=== PATIENT | male | born 1955 | race Caucasian/White ===

== ENCOUNTER 2019-02-18 08:57 | Emergency (ER) | payer MEDICAID ==
[~2019-02-18] VITALS: Ht 172.7 cm; Wt 107.5 kg
[2019-02-18 09:00] VITALS: BP_SYST 165
[2019-02-18 10:14] VITALS: BP_SYST 165
== END 2019-02-18 10:14 | disposition home or self-care (01) ==
LOC: SED 08:57
DX: S86.812A Strain of other muscle(s) and tendon(s) at lower leg level, left leg, initial encounter (principal); Z90.89 Acquired absence of other organs; X58.XXXA Exposure to other specified factors, initial encounter; Y93.89 Activity, other specified; Y92.89 Other specified places as the place of occurrence of the external cause; Y99.8 Other external cause status
CPT/HCPCS: 93971; 99284

== ENCOUNTER 2019-03-04 09:20 | Inpatient (IN) | payer MEDICAID ==
[2019-03-03 19:20] VITALS: BP_SYST 134
[~2019-03-04] VITALS: Ht 172.7 cm; Wt 106.6 kg
[2019-03-04 09:36] VITALS: BP_SYST 119
--- NOTE | 2019-03-04 09:40 | NUR ---
Patient to ER bed H1 to gown for evaluation. Side rails up. Assumed care.
--- NOTE | 2019-03-04 09:45 | NUR ---
Patient arrived via POV, AAOx4, and ambulatory with steady gait. Patient states he was seen for calf pain earlier this month and placed on Naprosyn. Onset of GI bleeding, blood in stool yesterday. He had 5 episode yesterday which he did not collect. Then he states he went to bed last night, and hoped it would be better today. Patient states he woke up and had another episode of bloody stool this AM and decided to come in. Patient brought in sample. Patient states he drove himself to the hospital since he wasnt feeling any pain or discomfort and was asymptomatic. While walking into the hospital he states he was feeling a bit winded and having SOB. Patient has tachycardia upon triage. Will continue to follow up and monitor.
--- NOTE | 2019-03-04 09:47 | NUR ---
ER at bedside examining patient.
[2019-03-04] MEDS ORDERED: NACL 0.9% 1,000 ML IV ONE (10:00)
[2019-03-04] MEDS ORDERED: PANTOPRAZOLE SODIUM 40 MG/VIAL (PROTONIX) IVP ONE (10:00)
--- NOTE | 2019-03-04 10:25 | NUR ---
Patient resting comfortably. Needs are met at this time. Will continue to follow up and monitor.
[2019-03-04 10:28] LABS: BASOPHILS % (AUTO) 0.3 % (0.0-2.0); EOSINOPHILS # (AUTO) 0.2 K/uL (0.0-0.4); EOSINOPHILS % (AUTO) 1.7 % (0.0-4.0); HEMATOCRIT 35.7 % (36-54); HEMOGLOBIN 11.8 g/dL (14.0-18.0); LYMPHOCYTES # (AUTO) 1.5 K/uL (1.0-5.5); LYMPHOCYTES % (AUTO) 17.4 % (20.5-51.5); MEAN CORPUSCULAR HEMOGLOBIN 30 pg (27-31); MEAN CORPUSCULAR HGB CONC 33 % (32-36); MEAN CORPUSCULAR VOLUME 90 fL (79.0-98.0); MONOCYTES # (AUTO) 0.5 K/uL (0.0-1.0); MONOCYTES % (AUTO) 5.7 % (1.7-9.3); NEUTROPHILS # (AUTO) 6.6 K/uL (1.8-7.7); NEUTROPHILS % (AUTO) 74.9 % (40.0-70.0); PLATELET COUNT (AUTO) 181 K/uL (130-430); RED BLOOD CELL COUNT(AUTO) 3.98 MIL/uL (4.2-6.2); RED CELL DISTRIBUTION WIDTH 14.4 % (9.0-15.0); WHITE BLOOD COUNT (AUTO) 8.8 K/uL (4.8-10.8)
[2019-03-04 10:32] LABS: CALCIUM 8.5 mg/dL (8.4-11.0); CREATININE 0.88 mg/dL (0.55-1.30); POTASSIUM 4.8 mmol/L (3.5-5.1)
[2019-03-04 10:38] LABS: ALBUMIN 3.5 g/dL (3.4-4.8); TOTAL BILIRUBIN 0.5 mg/dL (0.0-1.0)
--- NOTE | 2019-03-04 11:45 | NUR ---
SPOKE WITH ELENI NIGHT BAKER WITH PATIENTS INSURANCE.
--- NOTE | 2019-03-04 11:45 | NUR ---
Spoke with patients human services case manager, Shala. Okay to admit to [facility] as we are contracted with [facility]. Okay to admit to reproduction production manager physician which is Dr. Strauss. Dr. Strauss is paged.
--- NOTE | 2019-03-04 12:07 | NUR ---
Per MST, will call back with room number
--- NOTE | 2019-03-04 12:27 | NUR ---
CONSULTATION PAGED/CALLED Reason for Consultation: LOWER GI BLEED Person Who was Notified: ROSA Consulting Physician: DR. CRUZ Retail Field Merchandiser Specialty: TITLE I PARAPROFESSIONAL Ordering Physician: DR. STEPHEN
--- NOTE | 2019-03-04 12:32 | NUR ---
Report called to GRZEGORZ Mueller.
--- NOTE | 2019-03-04 12:35 | NUR ---
Patient will be admitted to care of Dr. Strauss. Admitted to Med Surg unit. Will go to room 117B. Belongings list completed. Complete and up to date summary report printed. SBAR report to be given at bedside with opportunity for questions.
--- NOTE | 2019-03-04 12:40 | NUR ---
ADMIT NOTE Received pt from ER to the floor with a diagnosis of GI Bleeding. Admission process initiated. patient oriented to pain management, safety and call light-teach back done.
--- NOTE | 2019-03-04 13:00 | NUR ---
ADMISSION: RECEIVED PT FROM ER VIA CRYSTAL IN STABLE CONDITION, DX:RISK FOR FLUID VOLUME DEFICIT, R/T GI BLEED, VSS, AFEBRILE, NO S/S OF DISTRESS, BREATH SOUNDS ARE CLEAR, BREATHING UNLABORED, NO C/O PAIN OR DISCOMFORT, IV SITE INTACT, PATENT, NO REDNESS OR SWELLING, ORIENTED TO UNIT, CALL LIGHT PLACED WITHIN REACH, WILL CONT' TO MONITOR AND ASSESS.
[2019-03-04] MEDS: KCL 20 mEq in D5/0.45NS 1000mL 1,000 ML IV SCH ×2 (14:38→21:26)
--- NOTE | 2019-03-04 15:00 | NUR ---
NURSES NOTES: PT HAS NO SIGNIFICANT CHANGES NOTED AT THIS TIME, ASSESSMENT MADE WHILE SITTING UP IN BED TALKING ON THE TELEPHONE, NEEDS MET, CALL LIGHT WITHIN REACH, WILL CONT' WITH POC.
[2019-03-04 15:12] VITALS: BP_SYST 134
--- NOTE | 2019-03-04 18:00 | NUR ---
END OF SHIFT: PT HAS NO SIGNIFICANT CHANGES, NO C/O ANYTHING AT THIS TIME, NEEDS MET, CALL LIGHT WITHIN REACH, WILL CONT' TO MONITOR, WILL ENDORSE TO INSTRUMENT PROCESSING TECH NURSE.
[2019-03-04 19:30] VITALS: BP_SYST 134
--- NOTE | 2019-03-04 19:30 | NUR ---
INITIAL NOTES PATIENT IS LAYING IN BED AND STABLE. NO S/S OF RESPIRATORY DISTRESS NOTED. CALL LIGHT IN REACH. BED IS LOCKED AND AT THE LOWEST POSITION. PATIENT REFUSED BED ALARM AT THIS TIME. WILL CONTINUE TO EDUCATE. PLAN OF CARE IS DISCUSSED WITH PATIENT AT THIS TIME. PATIENT VERBALIZES NO PAIN. FALL, SAFETY, ASPIRATION, AND RESPIRATORY PRECAUTIONS WILL BE IN PLACE THROUGHOUT THE SHIFT. PATIENT SUCCESSFULLY DEMONSTRATES USAGE OF CALL LIGHT AT THIS TIME.
[2019-03-04] MEDS: PANTOPRAZOLE SODIUM 40 MG/VIAL (PROTONIX) IVP SCH (21:26)
--- NOTE | 2019-03-04 21:30 | NUR ---
ROUNDING PATIENT IS WATCHING TV IN BED. PATIENT IS STABLE. NO S/S OF RESPIRATORY DISTRESS NOTED. CALL LIGHT IN REACH. BED IS LOCKED AND AT THE LOWEST POSITION. WILL CONTINUE TO MONITOR.
[2019-03-05] VITALS: BP_SYST 130
--- NOTE | 2019-03-05 01:30 | NUR ---
ROUNDING PATIENT IS SLEEPING. PATIENT IS STABLE. NO S/S OF RESPIRATORY DISTRESS NOTED. CALL LIGHT IN REACH. BED IS LOCKED AND AT THE LOWEST POSITION. WILL CONTINUE TO MONITOR.
--- NOTE | 2019-03-05 05:30 | NUR ---
ROUNDING PATIENT IS SLEEPING IN BED AND STABLE. NO S/S OF RESPIRATORY DISTRESS NOTED. CALL LIGHT IN REACH. BED IS LOCKED, ALARMED, AND AT THE LOWEST POSITION. WILL CONTINUE TO MONITOR.
--- NOTE | 2019-03-05 06:16 | NUR ---
CLOSING NOTES PATIENT IS LAYING IN BED AND STABLE. NO S/S OF RESPIRATORY DISTRESS NOTED. CALL LIGHT IN REACH. BED IS LOCKED, AND AT THE LOWEST POSITION. FALL, SAFETY, ASPIRATION, AND RESPIRATORY PRECAUTIONS HAS BEEN IN PLACE THROUGHOUT THE SHIFT. ALL NEEDS MET. WILL CONTINUE TO MONITOR UNTIL REPORT IS GIVEN TO AM NURSE BY BEDSIDE.
--- NOTE | 2019-03-05 07:37 | NUR ---
OPENING NOTE Patient resting in the bed. No acute distress. AAO x 4. Skin warm and dry to touch. Per patient IV accidental out minutes ago, no bleeding, IV tip intact. Discussed the safety issue, use call light when needs help, and plan of care, verbally understanding. Safety measure maintained. Bed locked in low position, side rails up. Refused bed alarm, risk and benefit explained, verbally understanding. Call light within reached. Will continue to monitor.
[2019-03-05 08:00] VITALS: BP_SYST 130
[2019-03-05 08:03] LABS: CREATININE 0.83 mg/dL (0.55-1.30); POTASSIUM 4.1 mmol/L (3.5-5.1)
[2019-03-05 08:04] LABS: BASOPHILS % (AUTO) 0.6 % (0.0-2.0); EOSINOPHILS # (AUTO) 0.2 K/uL (0.0-0.4); HEMATOCRIT 29.8 % (36-54); HEMOGLOBIN 9.8 g/dL (14.0-18.0); LYMPHOCYTES # (AUTO) 1.6 K/uL (1.0-5.5); LYMPHOCYTES % (AUTO) 27.1 % (20.5-51.5); MEAN CORPUSCULAR HEMOGLOBIN 30 pg (27-31); MEAN CORPUSCULAR HGB CONC 33 % (32-36); MEAN CORPUSCULAR VOLUME 91 fL (79.0-98.0); MONOCYTES # (AUTO) 0.5 K/uL (0.0-1.0); MONOCYTES % (AUTO) 7.8 % (1.7-9.3); NEUTROPHILS # (AUTO) 3.6 K/uL (1.8-7.7); NEUTROPHILS % (AUTO) 60.5 % (40.0-70.0); PLATELET COUNT (AUTO) 164 K/uL (130-430); RED BLOOD CELL COUNT(AUTO) 3.29 MIL/uL (4.2-6.2); RED CELL DISTRIBUTION WIDTH 14.3 % (9.0-15.0); WHITE BLOOD COUNT (AUTO) 5.9 K/uL (4.8-10.8)
--- NOTE | 2019-03-05 08:10 | NUR ---
IV RE-INSERTION: Restarted on LFA, gauge 22. Successful after 2 attempts. Resumed current IVF of KCl 20mEq in D5 1/2NS and regulated @ 100 per hour. Will observe for any signs of infiltration.
[2019-03-05] MEDS: PANTOPRAZOLE SODIUM 40 MG/VIAL (PROTONIX) IVP SCH ×2 (08:33→21:17)
[2019-03-05] MEDS: KCL 20 mEq in D5/0.45NS 1000mL 1,000 ML IV SCH ×2 (08:33→20:31)
--- NOTE | 2019-03-05 08:58 | NUR ---
SEEN AND EXAMINED BY PILY KIRK. ANSWERED AND EXPLAINED THE QUESTION THE PATIENT HAS.
[2019-03-05 12:00] VITALS: BP_SYST 120
--- NOTE | 2019-03-05 12:10 | NUR ---
LUNCH Patient sitting in the upright position and eating lunch. Safety measure maintained. Call light within reached. Bed locked in low position, side rails up. Continue to monitor.
--- NOTE | 2019-03-05 14:35 | NUR ---
WATCHING Patient resting in the bed and watching TV. No acute distress. IV intact, IVF infusing well. Safety measure maintained. Call light within reached. Will continue to monitor.
[2019-03-05 16:00] VITALS: BP_SYST 135
--- NOTE | 2019-03-05 16:10 | NUR ---
ROUND Patient resting in the bed and watching TV. No acute distress. IV intact, IVF infusing well. Safety measure maintained. Call light within reached. Will continue to monitor.
[2019-03-05 16:28] LABS: BASOPHILS % (AUTO) 0.4 % (0.0-2.0); EOSINOPHILS # (AUTO) 0.2 K/uL (0.0-0.4); EOSINOPHILS % (AUTO) 2.7 % (0.0-4.0); HEMATOCRIT 27.9 % (36-54); HEMOGLOBIN 9.1 g/dL (14.0-18.0); MEAN CORPUSCULAR HEMOGLOBIN 30 pg (27-31); MEAN CORPUSCULAR HGB CONC 33 % (32-36); MEAN CORPUSCULAR VOLUME 91 fL (79.0-98.0); MONOCYTES # (AUTO) 0.6 K/uL (0.0-1.0); MONOCYTES % (AUTO) 8.7 % (1.7-9.3); NEUTROPHILS # (AUTO) 4.2 K/uL (1.8-7.7); NEUTROPHILS % (AUTO) 60.2 % (40.0-70.0); PLATELET COUNT (AUTO) 162 K/uL (130-430); RED BLOOD CELL COUNT(AUTO) 3.08 MIL/uL (4.2-6.2); RED CELL DISTRIBUTION WIDTH 14.7 % (9.0-15.0)
[2019-03-05] MEDS ORDERED: BISACODYL 5 MG TABLET.DR (DULCOLAX) PO ONE (17:00)
--- NOTE | 2019-03-05 17:20 | NUR ---
COLONOSCOPY CONSENT SIGNED Per patient, Dr. Reed explained to him regarding the colonoscopy procedure and he understanding. Colonoscopy consent signed.
[2019-03-05] MEDS ORDERED: GOLYTELY / COLYTE SOLUTION 4 LITERS PO ONE (18:00)
--- NOTE | 2019-03-05 18:45 | NUR ---
CLOSING NOTE Patient resting in the bed. No acute distress. Denied of pain. Skin warm and dry to touch. IV intact to LFA, no redness, no swelling, no drainage. On KCl 20mEq in D5 1/2NS at 100ml/hr, infusing well. All needs met. Safety measure maintained. Bed locked in low position, side rails up. Refused bed alarm, risk and benefit explained, verbally understanding. Call light within reached. Will endorse to night nurse.
--- NOTE | 2019-03-05 19:45 | NUR ---
A/A/O X4.IVF D5 1/2 NS + 20 MEQ KCL/L @ 100 ML/HR INFUSING WELL.DENIES ANY DISCOMFORT @ THIS TIME.AFEBRILE. BP 146/78. INSTRUCTED TO USE CALL LIGHT NEEDED;WITHIN REACH.
--- NOTE | 2019-03-05 19:45 | NUR ---
A/A/O X4. RESTING ON RECLINER CHAIR.IVF 1/2 NS @40 ML/HR INFUSING WELL.DENIES ANY DISCOMFORT NOR SOB @ THIS TIME. NOTED LEFT ARM WITH BRUISING.BILATERAL EXTREMITIES WITH REDNESS & SWOLLEN. INSTRUCTED TO USE CALL LIGHT NEEDED;WITHIN REACH. AFEBRILE. BP 170/65. WILL CON'T TO MONITOR BP.
[2019-03-05 20:00] VITALS: BP_SYST 146
--- NOTE | 2019-03-05 22:00 | NUR ---
PT IS STILL TAKING HIS GOLYTELY,EXPLAINED TO FINISH BEFORE MN & VERBALIZED UNDERSTANDING.
--- NOTE | 2019-03-06 | NUR ---
RESTING COMFORTABLY IN NO ACUTE DISTRESS.IVF INFUSING WELL.
[2019-03-06 00:20] VITALS: BP_SYST 136
--- NOTE | 2019-03-06 02:00 | NUR ---
RESTING COMFORTABLY WITH BOTH EYES CLOSED IN NO ACUTE DISTRESS.IVF INFUSING WELL.
--- NOTE | 2019-03-06 04:00 | NUR ---
RESTING COMFORTABLY IN NO ACUTE DISTRESS.CALL LIGHT WITHIN REACH.
--- NOTE | 2019-03-06 04:45 | NUR ---
TAP WATER ENEMA DONE WITH CLEAR RESULT.
--- NOTE | 2019-03-06 06:42 | NUR ---
ENDORSED RESTING COMFORTABLY IN NO ACUTE DISTRESS.IVF INFUSING WELL.SAFETY MAINTAINED.CALL LIGHT WITHIN REACH.
[2019-03-06] MEDS: KCL 20 mEq in D5/0.45NS 1000mL 1,000 ML IV SCH ×2 (06:51→19:13)
[2019-03-06 07:24] LABS: BASOPHILS % (AUTO) 0.5 % (0.0-2.0); EOSINOPHILS # (AUTO) 0.3 K/uL (0.0-0.4); EOSINOPHILS % (AUTO) 3.6 % (0.0-4.0); HEMOGLOBIN 8.9 g/dL (14.0-18.0); LYMPHOCYTES # (AUTO) 2.1 K/uL (1.0-5.5); LYMPHOCYTES % (AUTO) 25.6 % (20.5-51.5); MEAN CORPUSCULAR HEMOGLOBIN 30 pg (27-31); MEAN CORPUSCULAR HGB CONC 33 % (32-36); MEAN CORPUSCULAR VOLUME 90 fL (79.0-98.0); MONOCYTES # (AUTO) 0.7 K/uL (0.0-1.0); MONOCYTES % (AUTO) 8.6 % (1.7-9.3); NEUTROPHILS % (AUTO) 61.7 % (40.0-70.0); PLATELET COUNT (AUTO) 151 K/uL (130-430); RED BLOOD CELL COUNT(AUTO) 2.99 MIL/uL (4.2-6.2); RED CELL DISTRIBUTION WIDTH 14.5 % (9.0-15.0); WHITE BLOOD COUNT (AUTO) 8.2 K/uL (4.8-10.8)
[2019-03-06 07:29] LABS: PROTHROMBIN TIME 10.5 SECS (9.5-12.5)
[2019-03-06 07:46] LABS: ALBUMIN 2.8 g/dL (3.4-4.8); CALCIUM 8.4 mg/dL (8.4-11.0); CREATININE 0.85 mg/dL (0.55-1.30); POTASSIUM 3.9 mmol/L (3.5-5.1); TOTAL BILIRUBIN 0.3 mg/dL (0.0-1.0)
--- NOTE | 2019-03-06 08:00 | NUR ---
RN INITIAL NOTES RECEIVED PATIENT ALERT FOR EGD/COLONOSCOPY TODAY, NPO MAINTAINED AND NO DISTRESS, PATIENT HAD WATER ENEMA THIS AM AND PER LAST NIGHT ITS CLEAR RETURN FLOW , PATIENT IS AWARE OF THE PLAN OF CARE
[2019-03-06] MEDS: PANTOPRAZOLE SODIUM 40 MG/VIAL (PROTONIX) IVP SCH ×2 (08:55→20:34)
[2019-03-06 09:00] VITALS: BP_SYST 133
--- NOTE | 2019-03-06 10:00 | NUR ---
ROUNDS PATIENT NOT IN ANY DISTRESS , OK WITH HIS EGD/COLONOSCOPY MOVED TO PM TIME, HE SAID HE DONT MIND, WILL CONT WITH NPO AND IVF ORDERED
[2019-03-06 12:27] VITALS: BP_SYST 143
--- NOTE | 2019-03-06 12:30 | NUR ---
ROUNDS PATIENT NOT IN ANY DISTRESS, PATIENT WATCHING TV AND NO COMPLAIN OF PAIN
--- NOTE | 2019-03-06 14:30 | NUR ---
PICKED UP BY GI LAB PATIENT WAS PICKED UP BY GI LAB AND REPORT GIVEN TO GI LAB . PATIENT IS WITH STEADY GAIT , TRANSPORTED VIA WHEELCHAIR
[2019-03-06] MEDS ORDERED: MIDAZOLAM HCL 5 MG/5 ML VIAL ONE ×2 (14:33)
[2019-03-06] MEDS ORDERED: MEPERIDINE HCL/PF 100 MG/ML AMP ONE (14:34)
[2019-03-06] MEDS ORDERED: SIMETHICONE 40 MG/0.6 ML ML ONE (14:34)
[2019-03-06 15:11] VITALS: BP_SYST 150
--- NOTE | 2019-03-06 17:41 | NUR ---
S/P EGD/COLONOSCOPY PATIENT BACK FROM GI LAB ALERT AWAKE AND VERBAL , NO DISTRESS , PATIENT VERBALIZING HE WANTS TO GO HOME, SEEN BY DR CRUZ AND DIET GIVEN , IVF RESUMED
--- NOTE | 2019-03-06 18:57 | NUR ---
ENDORSEMENT WILL ENDORSE TO NEXT SHIFT CONT CARE , PATIENT FULLY AWAKE AND NO COMPLAIN OF PAIN , PATIENT AMBULATORY AND NO COMPLAIN OF PAIN, PATIENT SAID HE WANTS TO GO HOME IN AM, WILL FOLLOW UP WITH
[2019-03-06 18:59] VITALS: BP_SYST 138
--- NOTE | 2019-03-06 19:45 | NUR ---
/A/A/O X4.AFEBRILE.BP 135/69.DENIES ANY DISCOMFORT @ THIS TIME.IVF D51/2NS+20 MEQ KCL/L @ 100ML/HR INFUSING WELL. INSTRUCTED TO USE CALL LIGHT NEEDED;WITHIN REACH.
[2019-03-06 20:00] VITALS: BP_SYST 135
[2019-03-06] MEDS ORDERED: MIDAZOLAM HCL 5 MG/ML VIAL (VERSED) IV ONE (20:00)
--- NOTE | 2019-03-06 22:00 | NUR ---
WATCHING TV.CALL LIGHT WITHIN REACH.
[2019-03-07] VITALS: BP_SYST 131
--- NOTE | 2019-03-07 02:00 | NUR ---
RESTING COMFORTABLY IN NO ACUTE DISTRESS.
--- NOTE | 2019-03-07 04:00 | NUR ---
RESTING COMFORTABLY IN NO ACUTE DISTRESS.IVF INFUSING WELL.
[2019-03-07] MEDS: KCL 20 mEq in D5/0.45NS 1000mL 1,000 ML IV SCH ×2 (04:23→10:00)
[2019-03-07] MEDS ORDERED: MEPERIDINE HCL/PF 50 MG/ML AMP IV ONE (06:45)
--- NOTE | 2019-03-07 06:49 | NUR ---
ENDORSED RESTING COMFORTABLY IN NO ACUTE DISTRESS.CALL LIGHT WITHIN REACH.SAFETY MAINTAINED.IVF INFUSING WELL.
[2019-03-07 07:40] LABS: BASOPHILS % (AUTO) 0.6 % (0.0-2.0); EOSINOPHILS # (AUTO) 0.3 K/uL (0.0-0.4); EOSINOPHILS % (AUTO) 4.3 % (0.0-4.0); HEMATOCRIT 25.7 % (36-54); HEMOGLOBIN 8.6 g/dL (14.0-18.0); LYMPHOCYTES # (AUTO) 1.9 K/uL (1.0-5.5); LYMPHOCYTES % (AUTO) 26.5 % (20.5-51.5); MEAN CORPUSCULAR HEMOGLOBIN 30 pg (27-31); MEAN CORPUSCULAR HGB CONC 33 % (32-36); MEAN CORPUSCULAR VOLUME 90 fL (79.0-98.0); MONOCYTES # (AUTO) 0.6 K/uL (0.0-1.0); MONOCYTES % (AUTO) 8.5 % (1.7-9.3); NEUTROPHILS # (AUTO) 4.4 K/uL (1.8-7.7); NEUTROPHILS % (AUTO) 60.1 % (40.0-70.0); PLATELET COUNT (AUTO) 153 K/uL (130-430); RED BLOOD CELL COUNT(AUTO) 2.86 MIL/uL (4.2-6.2); RED CELL DISTRIBUTION WIDTH 14.5 % (9.0-15.0); WHITE BLOOD COUNT (AUTO) 7.3 K/uL (4.8-10.8)
[2019-03-07 08:07] LABS: ALBUMIN 2.7 g/dL (3.4-4.8); CALCIUM 8.5 mg/dL (8.4-11.0); CREATININE 0.79 mg/dL (0.55-1.30); POTASSIUM 4.1 mmol/L (3.5-5.1); TOTAL BILIRUBIN 0.3 mg/dL (0.0-1.0)
[2019-03-07] MEDS: PANTOPRAZOLE SODIUM 40 MG/VIAL (PROTONIX) IVP SCH (08:16)
--- NOTE | 2019-03-07 08:18 | NUR ---
RN INITIAL NOTES RECEIVED PATIENT IN BED NOT IN ANY DISTRESS, RESP EVEN AND UNLABORED IVF INFUSING ORDERED, AMBULATES AND PATIENT STATED HE IS FEELING OK
--- NOTE | 2019-03-07 10:00 | NUR ---
ROUNDS PATIENT WATCHING TV NO DISTRESS, ANXIOUS TO GO HOME
--- NOTE | 2019-03-07 12:30 | NUR ---
ROUNDS PAGED DR HENDERSON FOR PATIENT WANTS TO GO HOME INFORMED PATIENT
--- NOTE | 2019-03-07 13:00 | NUR ---
DR KRISTIE BAIG RETURNED CALL AND INFORMED ABOUT PATIENT CONSULT AND CONDITION , MD DARCY AKHTAR Addendum: 03/07/19 at 1606 by Lyirc Jacome RN ERROR WRONG PATIENT
--- NOTE | 2019-03-07 13:00 | NUR ---
PAGED DR BEATRIZ BAIG PAGED PATIENT WANTS TO DC HOME
--- NOTE | 2019-03-07 15:00 | NUR ---
PAGEMal BAIG MD PAGED TO NOTIFY PATIENT WANTS TO GO HOME
[2019-03-07 15:07] VITALS: BP_SYST 131
--- NOTE | 2019-03-07 16:07 | NUR ---
GRETCHEN BAIG INFORMED CHARGE NURSE PATIENT WANTS TO GO HOME AND GRETCHEN BAIG AGAIN , WITH DISCHARGE ORDER
[2019-03-07 16:17] VITALS: BP_SYST 131
[2019-03-07] MEDS ORDERED: PRO40 PO (16:47)
--- NOTE | 2019-03-07 17:00 | NUR ---
DISCHARGE D/C Patient Patient given medication reconciliation form and D/C instructions. Exit Care provided. Patient verbalized understanding. MD discussed with patient the results and treatment provided. Ambulatory with steady gait for discharge to home. Patient in stable condition, ID band removed. IV catheter removed, intact and dressing applied, no active bleeding. Rx of protonix given,advised to follow up with pcp within a week . Patient educated on pain management. All belongings sent with patient.
== END 2019-03-07 17:10 | disposition home or self-care (01) | DRG 241 ==
LOC: SED 09:20 → SMU 12:00
PROVIDERS: ADMIT Family Medicine; ATTEND Family Medicine
PROC: 0DB78ZX Excision of Stomach, Pylorus, Via Natural or Artificial Opening Endoscopic, Diagnostic (ICD-10-PCS; principal; 2019-03-06 09:00)
PROC: 0DBP8ZZ Excision of Rectum, Via Natural or Artificial Opening Endoscopic (ICD-10-PCS; 2019-03-06 09:00)
DX: K25.4 Chronic or unspecified gastric ulcer with hemorrhage (principal); D64.9 Anemia, unspecified; K62.1 Rectal polyp; K29.70 Gastritis, unspecified, without bleeding; K26.4 Chronic or unspecified duodenal ulcer with hemorrhage; K29.80 Duodenitis without bleeding; K57.30 Diverticulosis of large intestine without perforation or abscess without bleeding; K64.8 Other hemorrhoids; Z79.899 Other long term (current) drug therapy
CPT/HCPCS: 36415; 43239; 45380; 80048; 80053; 85025; 85610-TC; 85730-TC; 87081; 88305; 88312; 88313; 96361; 96374; 99291; C9113; J2175; J2250